=== PATIENT | female | born 1980 | race Hispanic/Latino ===

== ENCOUNTER 2017-12-25 11:03 | Emergency (ER) | payer OTHER, MEDICAID ==
[2017-12-25 11:49] VITALS: BP 163/98
[2017-12-25] MEDS ORDERED: TORADOL IM ONE (13:12)
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
[2017-12-25] MEDS ORDERED: FLEXERIL PO ONE (13:26)
--- NOTE | 2017-12-25 14:25 | XRay Report ---
ROUTINE CHEST, TWO VIEWS: HISTORY: chest pain. The trachea, heart, mediastinal contour, lung bauer and bony thorax are unremarkable. IMPRESSION: Unremarkable chest x-ray.
--- NOTE | 2017-12-25 14:25 | XRay Report ---
LUMBOSACRAL SPINE, 3 VIEWS: History: Back pain Findings: The vertebral bodies, disk spaces and posterior elements are intact. No compression deformity or malalignment. The SI joints are symmetric and unremarkable. Impression: 1. No evidence for acute injury to the lumbar spine.
== END 2017-12-25 14:40 | disposition home or self-care (01) ==
LOC: ED 11:03
DX: S13.4XXA Sprain of ligaments of cervical spine, initial encounter (principal); S39.012A Strain of muscle, fascia and tendon of lower back, initial encounter; I10 Essential (primary) hypertension; V89.2XXA Person injured in unspecified motor-vehicle accident, traffic, initial encounter; Y93.89 Activity, other specified; Y92.89 Other specified places as the place of occurrence of the external cause; Y99.8 Other external cause status
CPT/HCPCS: 71046; 72100; 93005; 93010; 96372; 99283; J1885

== ENCOUNTER 2018-02-28 17:43 | Emergency (ER) | payer MEDICAID, OTHER ==
[2018-02-28] MEDS ORDERED: ZOFRAN ODT PO ONE (20:46)
[2018-02-28] MEDS ORDERED: NORCO 5/325 PO ONE (20:46)
--- NOTE | 2018-02-28 20:46 | Emergency Department Report ---
ED Headache HPI - General Chief Complaint: Headache Stated Complaint: SEVERE MIGRAINES X3DAYS Time Seen by Provider: 02/28/18 20:45 - History of Present Illness Initial Comments: 38-year-old female past medical history insomnia, HTN not currently of meds since with complaint of 3 days of persistent headache gradual onset but actually bothersome to the patient today. Patient denies photophobia or phonophobia denies any recent head or neck injury. Patient states she has been seeing a chiropractor recently for chronic back pain. Denies fever chills dysuria or hematuria or increased urinary frequency. Patient is awake alert and oriented 3 fully lucid. Denies alcohol or drug use. Patient states she was given Fioricet prescription by her chiropractor which did not help with her headache which is why she is here today. Also states that her blood pressure was elevated earlier today. Has not been on hypertension medicine in several months. As per patient was discontinued because her blood pressure improved. Denies any current chest pain palpitations shortness of breath or vision paresthesias. Timing/Duration: 24 hours, increasing Quality: moderate Head Injury Location: frontal, temporal Recent Head Trauma: occasional headaches Associated Symptoms: denies symptoms Allergies/Adverse Reactions: Allergies No Known Allergies Allergy (Verified 02/28/18 17:48) Home Medications: Ambulatory Orders Lactobacillus Combination No.8 [Adult Probiotic] 1 each PO QDAY 01/13/16 Tizanidine HCl [Zanaflex] 4 mg PO TID PRN 01/13/16 traZODone [Desyrel] 50 mg PO QHS 01/13/16 HYDROcodone/APAP 5-325 [[place] 5-325 mg TAB] 1 each PO Q6HR PRN #10 tablet HYDROcodone/APAP 7.5-325 [[place] 7.5-325 mg TAB] 1 each PO Q8HR PRN #12 tablet Cyclobenzaprine [Flexeril] 10 mg PO TID PRN #7 tablet 12/25/17 Ibuprofen [Motrin] 600 mg PO Q8H PRN #30 tablet 12/25/17 Acetaminophen [Acetaminophen TAB] 500 mg PO Q6HR PRN #20 tablet 02/28/18 Lisinopril [Zestril TAB] 5 mg PO QDAY #30 tablet 02/28/18 ED Review of Systems ROS: Stated complaint: SEVERE MIGRAINES X3DAYS Other details as noted in HPI Constitutional: denies: chills, fever Eyes: denies: eye pain, eye discharge, vision change ENT: denies: ear pain, throat pain Respiratory: denies: cough, shortness of breath, wheezing Cardiovascular: denies: chest pain, palpitations Endocrine: no symptoms reported Gastrointestinal: denies: abdominal pain, nausea, diarrhea Genitourinary: denies: urgency, dysuria, discharge Musculoskeletal: denies: back pain, joint swelling, arthralgia Skin: denies: rash, lesions Neurological: headache, other (insomnia). denies: weakness, paresthesias Psychiatric: denies: anxiety, depression Hematological/Lymphatic: denies: easy bleeding, easy bruising ED Past Medical Hx - Past Medical History Hx Hypertension: Yes (FOR 1 YR, OFF MEDS X [address] TORRES- PCP) - Surgical History Additional Surgical History: tubal ligation. . mass removed from pelvis area - Social History Smoking Status: Never Smoker Substance Use Type: None - Medications Home Medications: Home Medications Medication Instructions Recorded Confirmed Last Taken Type Lactobacillus Combination No.8 1 each PO QDAY 01/13/16 01/15/16 01/12/16 History [Adult Probiotic] Tizanidine HCl [Zanaflex] 4 mg PO TID PRN 01/13/16 01/15/16 01/15/16 10:30 History traZODone [Desyrel] 50 mg PO QHS 01/13/16 01/15/16 01/13/16 History HYDROcodone/APAP 5-325 [[place] 1 each PO Q6HR PRN #10 tablet 01/15/16 Unknown Rx 5-325 mg TAB] HYDROcodone/APAP 7.5-325 [[place] 1 each PO Q8HR PRN #12 tablet 07/26/16 Unknown Rx 7.5-325 mg TAB] Cyclobenzaprine [Flexeril] 10 mg PO TID PRN #7 tablet 12/25/17 Unknown Rx Ibuprofen [Motrin] 600 mg PO Q8H PRN #30 tablet 12/25/17 Unknown Rx Acetaminophen [Acetaminophen TAB] 500 mg PO Q6HR PRN #20 tablet 02/28/18 Unknown Rx Lisinopril [Zestril TAB] 5 mg PO QDAY #30 tablet 02/28/18 Unknown Rx ED Physical Exam - General Limitations: No Limitations General appearance: alert, in no apparent distress - Head Head exam: Present: atraumatic, normocephalic - Eye Eye exam: Present: normal appearance, PERRL, EOMI - ENT ENT exam: Present: mucous membranes moist - Neck Neck exam: Present: normal inspection, full ROM - Respiratory Respiratory exam: Present: normal lung sounds bilaterally. Absent: respiratory distress - Cardiovascular Cardiovascular Exam: Present: regular rate, normal rhythm. Absent: systolic murmur, diastolic murmur, rubs, gallop - GI/Abdominal GI/Abdominal exam: Present: soft, normal bowel sounds - Extremities Exam Extremities exam: Present: normal inspection - Back Exam Back exam: Present: normal inspection - Neurological Exam Neurological exam: Present: alert, oriented X3, CN II-XII intact, normal gait - Expanded Neurological Exam Expanded Patient oriented to: Present: person, place, time Cranial nerves: EOM's Intact: Normal, Nystagmus: Normal, Facial Sensation: Normal Cerebellar function: Finger to Nose: Normal (no ataxia, Rapid alternating movements and romberg test normal), Heel to [place]: Normal, Romberg: Normal Sensory exam: Upper Extremity Light Touch: Normal, Lower Extremity Light Touch: Normal Motor strength exam: RUE: 5, LUE: 5, RLE: 5, LLE: 5 DTR: tricep (R): 3+, tricep (L): 3+, knee (R): 3+, knee (L): 3+ Best Eye Response (Halle): (4) open spontaneously Best Motor Response ([place]): (6) obeys commands Best Verbal Response ([place]alle): (5) oriented [place] Total: 15 - Psychiatric Psychiatric exam: Present: normal affect, normal mood - Skin Skin exam: Present: warm, dry, intact, normal color. Absent: rash ED Course Vital Signs 02/28/18 02/28/18 02/28/18 17:48 22:14 22:18 Temperature 98.2 F Pulse Rate 96 H Respiratory 18 18 18 Rate Blood Pressure 154/99 O2 Sat by Pulse 99 Oximetry ED Medical Decision Making - Medical Decision Making A/P: Headache 1- CT unremarkable, no ICH, no ischemic changes, no volume changes or mass effect 2- patient's vital signs stable. Patient is slightly hypertensive. Patient states she has follow-up with her PMD within the next week however does not currently have prescription for lisinopril. Patient was previously on lisinopril for hypertension. 3- patient already has prescription for Fioricet. 4- patient states she intermittently takes Ambien as well as Seroquel consistently for insomnia. As there is no other overt or obvious cause of headache I investigated and headache is in more common side effect profile for Seroquel. I advised patient to discuss her Seroquel dosing with her outpatient psychiatrist. Patient has no clinical neurological deficits on current exam. CN III through XII intact on exam. Strength 5 out of 5 bilateral upper and lower extremities with no facial palsy or slurred speech. 5- follow up with outpatient neurology Critical care attestation.: If time is entered above; I have spent that time in minutes in the direct care of this critically ill patient, excluding procedure time. ED Disposition Clinical Impression: Headache Qualifiers: Headache type: tension-type Headache chronicity pattern: acute headache Intractability: not intractable Qualified Code(s): G44.209 - Tension-type headache, unspecified, not intractable Hypertension Qualifiers: Hypertension type: unspecified Qualified Code(s): I10 - Essential (primary) hypertension Disposition: DC- TO HOME OR SELFCARE Is pt being admited?: No Does the pt Need Aspirin: No Condition: Stable Instructions: Hypertension (ED), Tension Headache (ED), Acute Headache (ED) Prescriptions: Acetaminophen [Acetaminophen TAB] 500 mg PO Q6HR PRN #20 tablet PRN Reason: Headache Lisinopril [Zestril TAB] 5 mg PO QDAY #30 tablet Referrals: PRIMARY MD JOSE [Primary Care Provider] - 3-5 Days JAVIER WADE MD [Staff Physician] - 3-5 Days YANELI GOVEA MD [Staff Physician] - 3-5 Days Forms: Accompanied Note Time of Disposition: 23:04
[2018-02-28] MEDS ORDERED: REGLAN PO ONE (21:40)
[2018-02-28] MEDS ORDERED: TYLENOL PO ONE (21:40)
[2018-02-28] MEDS ORDERED: TORADOL IM ONE (21:40)
--- NOTE | 2018-02-28 21:59 | Cat Scan Report ---
FINAL REPORT EXAM: CT HEAD/BRAIN WO CON HISTORY: right sided VEE worsening 1 day TECHNIQUE: Noncontrast CT axial images of the brain. PRIORS: None. FINDINGS: No parenchymal mass, mass effect, hemorrhage, midline shift or hydrocephalus. No evidence of acute cortical infarct. No abnormal, extra-axial fluid or air collection. Osseous calvarium grossly intact. IMPRESSION: 1. No acute intracranial findings.
[2018-02-28] MEDS ORDERED: ZESTRIL PO ONE (22:59)
[2018-02-28 23:21] VITALS: BP 156/104
== END 2018-02-28 23:21 | disposition home or self-care (01) ==
LOC: ED 17:43
DX: R51 Headache (principal); I10 Essential (primary) hypertension; Z98.51 Tubal ligation status
CPT/HCPCS: 70450; 96372; 99283; J1885

== ENCOUNTER 2018-03-11 14:23 | Emergency (ER) | payer MEDICAID ==
[2018-03-11 14:41] VITALS: BP 139/94
--- NOTE | 2018-03-11 15:07 | Emergency Department Report ---
Chief Complaint: Headache Stated Complaint: HYPERTENSIVE Time Seen by Provider: 03/11/18 14:54 - HPI History of Present Illness: 38-year-old female presents to the emergency department, driving himself in to be seen, with a complaint of elevated blood pressure, headache and yesterday she also had an episode where she was short of breath. The headache is been going on for the past 2-3 weeks and it is mostly frontal, left- sided but sometimes will move to the right side. She calls it a migraine but has never been diagnosed with migraine headaches. She was here for similar symptoms on 02/28/[address] scan of the head that was negative for any acute process. The patient says that her blood pressure has been elevated oftentimes going to about 150/116. She went to a [facility] house today to have a blood pressure checked and was told to go to the emergency department. No focal , motor or sensory deficits. She is currently taking doxycycline for a tick bite and is on 5 mg Norvasc for her blood pressure. She recently saw a new primary care physician, Dr. Jr العلي, for the first time. - ROS Review of Systems: Positive for headache, shortness of breath Negative for chest pain, fever, vision change, slurred speech - Exam Vital Signs: Vital Signs 03/11/18 03/11/18 14:36 14:51 Temperature 98.8 F Pulse Rate 97 H Respiratory 18 17 Rate Blood Pressure 139/94 O2 Sat by Pulse 100 Oximetry Physical Exam: Patient appears slightly anxious. Heart and lung sounds are normal to auscultation. MSE screening note: Focused history and physical exam performed. Due to findings the following was ordered: I have ordered a CBC, BMP and TSH for labs. She will have a 2 view chest x-ray. ED Disposition for MSE Condition: Stable
[2018-03-11 15:25] LABS: Basophils % (Auto) 0.4 % (0.0-1.8); Eosinophils % (Auto) 0.2 % (0.0-4.3); Hematocrit 38.1 % (30.3-42.9); Hemoglobin 12.8 gm/dl (10.1-14.3); Lymphocytes # (Auto) 1.2 K/mm3 (1.2-5.4); Lymphocytes % (Auto) 20.7 % (13.4-35.0); Mean Corpuscular HGB Conc 34 % (30-34); Mean Corpuscular Hemoglobin 29 pg (28-32); Mean Corpuscular Volume 87 fl (79-97); Monocytes # (Auto) 0.4 K/mm3 (0.0-0.8); Monocytes % (Auto) 6.2 % (0.0-7.3); Platelet Count 239 K/mm3 (140-440); Red Blood Count 4.39 M/mm3 (3.65-5.03); Red Cell Distribution Width 13.8 % (13.2-15.2)
[2018-03-11 15:43] LABS: BUN/Creatinine Ratio 17; Blood Urea Nitrogen 10 mg/dL (7-17); Calcium 8.8 mg/dL (8.4-10.2); Hemolysis Index 11
[2018-03-11] MEDS ORDERED: TYLENOL PO ONE (15:43)
--- NOTE | 2018-03-11 16:59 | Emergency Department Report ---
ED Headache HPI - General Chief Complaint: Headache Stated Complaint: HYPERTENSIVE Time Seen by Provider: 03/11/18 14:54 - History of Present Illness Initial Comments: 38-year-old female past medical history hypertension, headaches, insomnia presents with complaint of increased blood pressure and associated headache. Patient states this is been ongoing for several weeks. Denies any current fever chills nausea vomiting photophobia. States she has been stressed more than usual a family member being critically ill lately. Patient states she has been taking amlodipine 5 mg daily but her blood pressure has remained persistently elevated. States that her blood pressure was over 120 diastolic this morning which is one of the reasons she came to the emergency department. Denies any current chest pain palpitations shortness of breath nausea or vomiting. Patient is awake alert and oriented 3. States headache is only moderate at this time has been worse in the past. Denies any blurry vision upper or lower extremity paresthesias Quality: mild Head Injury Location: frontal Associated Symptoms: denies symptoms Allergies/Adverse Reactions: Allergies No Known Allergies Allergy (Verified 03/11/18 14:36) Home Medications: Ambulatory Orders Lactobacillus Combination No.8 [Adult Probiotic] 1 each PO QDAY 01/13/16 Tizanidine HCl [Zanaflex] 4 mg PO TID PRN 01/13/16 traZODone [Desyrel] 50 mg PO QHS 01/13/16 HYDROcodone/APAP 5-325 [[place] 5-325 mg TAB] 1 each PO Q6HR PRN #10 tablet HYDROcodone/APAP 7.5-325 [[place] 7.5-325 mg TAB] 1 each PO Q8HR PRN #12 tablet Cyclobenzaprine [Flexeril] 10 mg PO TID PRN #7 tablet 12/25/17 Ibuprofen [Motrin] 600 mg PO Q8H PRN #30 tablet 12/25/17 Acetaminophen [Acetaminophen TAB] 500 mg PO Q6HR PRN #20 tablet 02/28/18 Lisinopril [Zestril TAB] 5 mg PO QDAY #30 tablet 02/28/18 Amlodipine Besylate [Norvasc] 2.5 mg PO QDAY #30 tablet 03/11/18 ED Review of Systems ROS: Stated complaint: HYPERTENSIVE Other details as noted in HPI Constitutional: denies: chills, fever Eyes: denies: eye pain, eye discharge, vision change ENT: denies: ear pain, throat pain Respiratory: denies: cough, shortness of breath, wheezing Cardiovascular: denies: chest pain, palpitations Endocrine: no symptoms reported Gastrointestinal: denies: abdominal pain, nausea, diarrhea Genitourinary: denies: urgency, dysuria, discharge Musculoskeletal: denies: back pain, joint swelling, arthralgia Skin: denies: rash, lesions Neurological: headache. denies: weakness, paresthesias Psychiatric: denies: anxiety, depression Hematological/Lymphatic: denies: easy bleeding, easy bruising ED Past Medical Hx - Past Medical History Hx Hypertension: Yes (FOR 1 YR, OFF MEDS X [address] TORRES- PCP) - Surgical History Additional Surgical History: tubal ligation. . mass removed from pelvis area - Social History Smoking Status: Never Smoker Substance Use Type: None - Medications Home Medications: Home Medications Medication Instructions Recorded Confirmed Last Taken Type Lactobacillus Combination No.8 1 each PO QDAY 01/13/16 01/15/16 01/12/16 History [Adult Probiotic] Tizanidine HCl [Zanaflex] 4 mg PO TID PRN 01/13/16 01/15/16 01/15/16 10:30 History traZODone [Desyrel] 50 mg PO QHS 01/13/16 01/15/16 01/13/16 History HYDROcodone/APAP 5-325 [[place] 1 each PO Q6HR PRN #10 tablet 01/15/16 Unknown Rx 5-325 mg TAB] HYDROcodone/APAP 7.5-325 [[place] 1 each PO Q8HR PRN #12 tablet 07/26/16 Unknown Rx 7.5-325 mg TAB] Cyclobenzaprine [Flexeril] 10 mg PO TID PRN #7 tablet 12/25/17 Unknown Rx Ibuprofen [Motrin] 600 mg PO Q8H PRN #30 tablet 12/25/17 Unknown Rx Acetaminophen [Acetaminophen TAB] 500 mg PO Q6HR PRN #20 tablet 02/28/18 Unknown Rx Lisinopril [Zestril TAB] 5 mg PO QDAY #30 tablet 02/28/18 Unknown Rx Amlodipine Besylate [Norvasc] 2.5 mg PO QDAY #30 tablet 03/11/18 Unknown Rx ED Physical Exam - General Limitations: No Limitations General appearance: alert, in no apparent distress - Head Head exam: Present: atraumatic, normocephalic - Eye Eye exam: Present: normal appearance, PERRL, EOMI - ENT ENT exam: Present: mucous membranes moist - Neck Neck exam: Present: normal inspection, full ROM - Respiratory Respiratory exam: Present: normal lung sounds bilaterally. Absent: respiratory distress - Cardiovascular Cardiovascular Exam: Present: regular rate, normal rhythm. Absent: systolic murmur, diastolic murmur, rubs, gallop - GI/Abdominal GI/Abdominal exam: Present: soft, normal bowel sounds - Extremities Exam Extremities exam: Present: normal inspection - Back Exam Back exam: Present: normal inspection - Neurological Exam Neurological exam: Present: alert, oriented X3, CN II-XII intact, normal gait - Expanded Neurological Exam Expanded Patient oriented to: Present: person, place, time Cranial nerves: EOM's Intact: Normal, Facial Sensation: Normal Cerebellar function: Finger to Nose: Normal, Heel to [place]: Normal, [place]: Normal Sensory exam: Upper Extremity Light Touch: Normal, Lower Extremity Light Touch: Normal Motor strength exam: RUE: 5, LUE: 5, RLE: 5, LLE: 5 DTR: tricep (R): 3+, tricep (L): 3+, knee (R): 3+, knee (L): 3+ Best Eye Response ([place]): (4) open spontaneously Best Motor Response ([place]): (6) obeys commands Best Verbal Response ([place]): (5) oriented [place] Total: 15 - Psychiatric Psychiatric exam: Present: normal affect, normal mood - Skin Skin exam: Present: warm, dry, intact, normal color. Absent: rash ED Course Vital Signs 03/11/18 03/11/18 14:36 14:51 Temperature 98.8 F Pulse Rate 97 H Respiratory 18 17 Rate Blood Pressure 139/94 O2 Sat by Pulse 100 Oximetry ED Medical Decision Making - Lab Data Result diagrams: 03/11/18 15:12 03/11/18 15:12 - Medical Decision Making A/P: Hypertension, headache 1-labs and chest x-ray unremarkable today 2-pt recently had CT scan of head which was unremarkable 3-no neurological deficits at this time. Cranial nerves 2, 3, 4, 5, 6, 7, 8,10 , 11, 12 intact on clinical exam, patient is fully lucid awake alert and oriented 3 conversant. Denies any upper or lower extremity paresthesias and has 5/5 strength in bilateral upper and lower extremities on clinical exam. 4-patient states she is going to follow up with her primary care physician tomorrow. Advised her to decrease smoking salty food intake. 5-vital signs are acceptable for discharge Critical care attestation.: If time is entered above; I have spent that time in minutes in the direct care of this critically ill patient, excluding procedure time. ED Disposition Clinical Impression: Hypertension Qualifiers: Hypertension type: unspecified Qualified Code(s): I10 - Essential (primary) hypertension Headache Qualifiers: Headache type: unspecified Headache chronicity pattern: episodic headache Intractability: not intractable Qualified Code(s): R51 - Headache Disposition: DC-01 TO HOME OR SELFCARE Is pt being admited?: No Does the pt Need Aspirin: No Condition: Stable Instructions: Hypertension (ED), Acute Headache (ED) Prescriptions: Amlodipine Besylate [Norvasc] 2.5 mg PO QDAY #30 tablet Referrals: [facility] [Outside] - 3-5 Days [facility] [Outside] - 3-5 Days HOMAR MIRAMONTES MD [Staff Physician] - 3-5 Days Forms: Work/School Release Form(ED) Time of Disposition: 16:59
[2018-03-11] MEDS ORDERED: TYLENOL #3 PO ONE (17:11)
--- NOTE | 2018-03-12 14:30 | XRay Report ---
FINAL REPORT EXAM: XR CHEST ROUTINE 2V HISTORY: SOB TECHNIQUE: Two view chest PA and lateral PRIORS: None. FINDINGS: Cardiac and mediastinal contours are unremarkable. No focal pulmonary infiltrate is identified. No pleural fluid collection seen. Pulmonary vasculature is unremarkable. IMPRESSION: Negative two-view chest
== END 2018-03-11 17:21 | disposition home or self-care (01) ==
LOC: ED 14:23
DX: I10 Essential (primary) hypertension (principal); R51 Headache; Z98.51 Tubal ligation status
CPT/HCPCS: 36415; 71046; 80048; 84443; 84703; 85025

== ENCOUNTER 2020-12-01 15:04 | Emergency (ER) | payer MEDICAID ==
--- NOTE | 2020-12-01 15:52 | Event Note ---
ED Screening Note Date of service: 12/01/20 Time: 15:47 ED Screening Note: 40-year-old female presents to the ER today complaining of right lower quadrant abdominal pain. She states that it started couple weeks ago then got better then worsened again this past week. She reports associated nausea and intermittent vomiting, urinary frequency and urinary odor. She states that she is 13 days late for her menstrual cycle. She did take a home test but it was inconclusive. Her last menstrual cycle was October 21, 2020. Past medical history include thyroid disease, C. difficile This initial assessment/diagnostic orders/clinical plan/treatment(s) is/are subject to change based on patients health status, clinical progression and re- assessment by fellow clinical providers in the ED. Further treatment and workup at subsequent clinical providers discretion. Patient/guardian urged not to elope from the ED as their condition may be serious if not clinically assessed and managed. Initial orders include: CBC, urinalysis, CMP, hCG, lipase
[2020-12-01 16:29] LABS: Basophils # (Auto) 0.1 K/mm3 (0.0-0.1); Basophils % (Auto) 1.2 % (0.0-1.8); Eosinophils % (Auto) 0.8 % (0.0-4.3); Hemoglobin 13.9 gm/dl (10.1-14.3); Lymphocytes # (Auto) 1.7 K/mm3 (1.2-5.4); Lymphocytes % (Auto) 30.7 % (13.4-35.0); Mean Corpuscular HGB Conc 34 % (30-34); Mean Corpuscular Volume 87 fl (79-97); Monocytes # (Auto) 0.3 K/mm3 (0.0-0.8); Monocytes % (Auto) 5.6 % (0.0-7.3); Platelet Count 208 K/mm3 (140-440); Red Blood Count 4.71 M/mm3 (3.65-5.03); Red Cell Distribution Width 13.7 % (13.2-15.2)
[2020-12-01 16:45] LABS: Alanine Aminotransferase 13 units/L (7-56); Albumin 4.3 g/dL (3.9-5); Blood Urea Nitrogen 11 mg/dL (7-17); Calcium 9.1 mg/dL (8.4-10.2); Hemolysis Index 3
[2020-12-01 16:54] LABS: BUN/Creatinine Ratio 16
[2020-12-01 16:57] LABS: Bilirubin,Urine NEG (Negative); Blood,Urine NEG (Negative); Color,Urine Yellow (Yellow); Hyaline Casts,Urine 1 /LPF; Mucus,Urine FEW /HPF; Urobilinogen,Urine < 2.0 mg/dL (<2.0)
[2020-12-01] MEDS ORDERED: ONDANSETRON 4 MG/2 ML INJ IV ONE (16:59)
[2020-12-01] MEDS ORDERED: HYDROmorphone 1 MG/1 ML INJ IV ONE (16:59)
[2020-12-01] MEDS ORDERED: SODIUM CHLORIDE 0.9% 1000 ML 1,000 ML IV ONE (16:59)
--- NOTE | 2020-12-01 17:00 | Emergency Department Report ---
ED General Adult HPI - General Chief complaint: Abdominal Pain Stated complaint: ABDOMINAL PAIN (POSS PREG) PUI?: No Time Seen by Provider: 12/01/20 15:41 Source: patient, RN notes reviewed, old records reviewed Mode of arrival: Ambulatory Limitations: No Limitations - History of Present Illness Initial comments: The patient was evaluated in the emergency department for symptoms described in the history of present illness. He/she was evaluated in the context of the global COVID-19 pandemic, which necessitated consideration that the patient might be at risk for infection with the virus that causes COVID-19. Institutional protocols and algorithms that pertain to the evaluation of patients at risk for COVID-19 are in a state of rapid change based on information released by regulatory bodies including the CDC and federal and state organizations. These policies and algorithms were followed during the patient's care in the emergency department. Please note that these policies, procedures and recommendations changed on a rapid basis. During the history and physical examination, I am chaperoned by nurse Giovanna Meza This is a 40-year-old female. The patient presents to the ER with a complaint of suprapubic and right lower quadrant pain for the past week. The pain is typically worse at night, but constant. There is positive nausea but no vomiting. The pain is "all over" her lower abdominal region. Has extensive abdominal surgical history, including tubal ligation, , and "cyst/seroma" which need to be surgically excised from her anterior abdominal wall. The patient denies headache, neck pain, chest pain, new/different cough, loss of taste and smell, indicates that her urine "smells funny", but denies dysuria, and also endorses chronic vaginal discharge. No extremity complaints. She is not sure if she is . She states that she is not trying to conceive at this time -: Gradual, days(s) Location: abdomen, pelvis Radiation: non-radiation Quality: aching Consistency: constant Improves with: rest Worsens with: movement - Related Data Home Medications Medication Instructions Recorded Confirmed Last Taken Lactobacillus Combination No.8 1 each PO QDAY 01/13/16 01/15/16 01/12/16 [Adult Probiotic] traZODone [Desyrel] 50 mg PO QHS 01/13/16 01/15/16 01/13/16 Previous Rx's Medication Instructions Recorded Last Taken Type Ibuprofen [Motrin] 600 mg PO Q8H PRN #30 tablet 12/25/17 Unknown Rx Acetaminophen [Acetaminophen TAB] 500 mg PO Q6HR PRN #20 tablet 02/28/18 Unknown Rx lisinopriL [Zestril TAB] 5 mg PO QDAY #30 tablet 02/28/18 Unknown Rx Amlodipine Besylate [Norvasc] 2.5 mg PO QDAY #30 tablet 03/11/18 Unknown Rx Acetaminophen [Non-Aspirin Extra 500 mg PO Q6HR PRN #30 tablet 12/01/20 Unknown Rx Strength] Ibuprofen [Motrin] 600 mg PO Q8H PRN #30 tablet 12/01/20 Unknown Rx Ondansetron [Zofran Odt] 4 mg PO Q8HR PRN #20 tab.rapdis 12/01/20 Unknown Rx metroNIDAZOLE [metroNIDAZOLE 1 applicatio VG QHS 5 Days #1 12/01/20 Unknown Rx VAGINAL 0.75% gel] gel.w.appl Allergies Allergy/AdvReac Type Severity Reaction Status Date / Time No Known Allergies Allergy Verified 12/01/20 15:38 ED Review of Systems ROS: Stated complaint: ABDOMINAL PAIN (POSS PREG) Other details as noted in HPI Constitutional: denies: fever, malaise, weakness Eyes: denies: vision change ENT: denies: epistaxis Respiratory: denies: cough Cardiovascular: denies: chest pain Gastrointestinal: abdominal pain, nausea Genitourinary: as per HPI, discharge. denies: dysuria Musculoskeletal: denies: back pain Neurological: weakness Psychiatric: anxiety Hematological/Lymphatic: denies: easy bleeding ED Past Medical Hx - Past Medical History Previous Medical History?: Yes Hx Hypertension: Yes (FOR 1 YR, OFF MEDS X [address] TORRES- PCP) Hx Liver Disease: Yes (tested positive for HEP C but says is "inactive") Additional medical history: CDiff 2016 - Surgical History Past Surgical History?: Yes Additional Surgical History: tubal ligation. . mass removed from pelvis area - Social History Smoking Status: Never Smoker - Medications Home Medications: Home Medications Medication Instructions Recorded Confirmed Last Taken Type Lactobacillus Combination No.8 1 each PO QDAY 01/13/16 01/15/16 01/12/16 History [Adult Probiotic] traZODone [Desyrel] 50 mg PO QHS 04/03/2401/15/16 01/13/16 History Ibuprofen [Motrin] 600 mg PO Q8H PRN #30 tablet 12/25/17 Unknown Rx Acetaminophen [Acetaminophen TAB] 500 mg PO Q6HR PRN #20 tablet 02/28/18 Unknown Rx lisinopriL [Zestril TAB] 5 mg PO QDAY #30 tablet 02/28/18 Unknown Rx Amlodipine Besylate [Norvasc] 2.5 mg PO QDAY #30 tablet 03/11/18 Unknown Rx Acetaminophen [Non-Aspirin Extra 500 mg PO Q6HR PRN #30 tablet 12/01/20 Unknown Rx Strength] Ibuprofen [Motrin] 600 mg PO Q8H PRN #30 tablet 12/01/20 Unknown Rx Ondansetron [Zofran Odt] 4 mg PO Q8HR PRN #20 tab.rapdis 12/01/20 Unknown Rx metroNIDAZOLE [metroNIDAZOLE 1 applicatio VG QHS 5 Days #1 12/01/20 Unknown Rx VAGINAL 0.75% gel] gel.w.appl ED Physical Exam - General Limitations: No Limitations General appearance: alert, anxious, obese - Head Head exam: Present: atraumatic, normocephalic - Eye Eye exam: Present: normal appearance, EOMI. Absent: nystagmus - ENT ENT exam: Present: normal exam, normal orophraynx, mucous membranes moist, normal external ear exam - Neck Neck exam: Present: normal inspection, full ROM. Absent: tenderness, meningismus - Respiratory Respiratory exam: Present: normal lung sounds bilaterally. Absent: respiratory distress, wheezes, rales, rhonchi, stridor, decreased breath sounds - Cardiovascular Cardiovascular Exam: Present: regular rate, normal rhythm, normal heart sounds. Absent: bradycardia, tachycardia, irregular rhythm, systolic murmur, diastolic murmur, rubs, gallop - GI/Abdominal GI/Abdominal exam: Present: soft, tenderness, normal bowel sounds, other (Suprapubic and right lower quadrant tender). Absent: distended, guarding, rebound, rigid, pulsatile mass - External exam: Present: normal external exam. Absent: erythema, swelling, lesions, lacerations, ecchymosis Speculum exam: Present: normal speculum exam, vaginal discharge (Scant whitish discharge noted in the vaginal vault). Absent: erythema, cervical discharge, vaginal bleeding, tissue, laceration Bi-manual exam: Present: normal bi-manual exam, other (Chaperoned by Venice Zuniga). Absent: cervical motion tendernes, adnexal tenderness, adnexal mass, uterine enlargement, uterine tenderness - Extremities Exam Extremities exam: Present: normal inspection, full ROM, other (2+ pulses noted in the bilateral upper and lower extremities. There is no palpable cord. negative Homans sign. Muscular compartments are soft. The pelvis is stable.). Absent: pedal edema, calf tenderness - Back Exam Back exam: Present: normal inspection, full ROM. Absent: tenderness, CVA tenderness (R), CVA tenderness (L), paraspinal tenderness, vertebral tenderness - Neurological Exam Neurological exam: Present: alert, normal gait, other (No facial droop. Tongue midline. Extraocular movements intact bilaterally. Facial sensation intact to light touch in V1, V2, V3 distribution bilaterally. 5 and a 5 strength in 4 extremities. Sensation intact to light touch in 4 extremities.). Absent: motor sensory deficit - Psychiatric Psychiatric exam: Present: anxious - Skin Skin exam: Present: warm, dry, intact, normal color. Absent: rash ED Course Vital Signs 12/01/20 12/01/20 12/01/20 15:38 19:00 19:20 Temperature 98.0 F Pulse Rate 90 80 Respiratory 18 15 16 Rate Blood Pressure 151/98 129/86 O2 Sat by Pulse 100 98 Oximetry - Reevaluation(s) Reevaluation #1: 12/01/20 17:32 Differential diagnosis, include but not limited to: Appendicitis, renal colic, constipation, ovarian cyst, ovarian torsion, hydrosalpinx, pelvic inflammatory disease, inflammatory bowel disease, functional abdominal pain Endometriosis Assessment and plan: 40-year-old female with acute on chronic suprapubic and right lower quadrant pain. She is afebrile with reassuring vital signs, but fairly tender. She is not , and urinalysis and history not suggestive of urinary tract infection. Perform pelvic examination, treat symptoms aggressively, and symptomatically, obtain CT scan of the abdomen pelvis, pelvic ultrasound, and reassess. Have discussed this plan of care with the patient, who verbalized understanding, and is amenable to this plan of care. During the entire history and physical examination, chaperoned by nurse Giovanna Meza. 12/01/20 19:54 Gynecologic examination is benign. CT scan of the abdomen pelvis negative for acute findings. Pelvic ultrasound negative for acute findings. There is no left lower quadrant pain or tenderness. Belly soft on repeat examination. Had scant whitish discharge, recently treated for "sinusitis" with uncertain antibiotic, patient thinks she might have a yeast infection. Covered empirically with fluconazole, wet prep shows clue cells. Patient will be treated for BV, as she endorsed smell and discharge. Patient does not appear to have an emergent surgical medical condition at this time, she is resting comfortably, suitable for discharge with outpatient follow- up. ED Medical Decision Making - Lab Data Result diagrams: 12/01/20 16:10 12/01/20 16:10 Vital Signs 12/01/20 15:38 Temperature 98.0 F Pulse Rate 90 Respiratory 18 Rate Blood Pressure 151/98 O2 Sat by Pulse 100 Oximetry Lab Results 12/01/20 12/01/20 12/01/20 Range/Units 16:10 16:10 16:10 WBC 5.4 (4.5-11.0) K/mm3 RBC 4.71 (3.65-5.03) M/mm3 Hgb 13.9 (10.1-14.3) gm/dl Hct 41.0 (30.3-42.9) % MCV 87 (79-97) fl MCH 29 (28-32) pg MCHC 34 (30-34) % RDW 13.7 (13.2-15.2) % Plt Count 208 (140-440) K/mm3 Lymph % (Auto) 30.7 (13.4-35.0) % Norman % (Auto) 5.6 (0.0-7.3) % Eos % (Auto) 0.8 (0.0-4.3) % Baso % (Auto) 1.2 (0.0-1.8) % Lymph # (Auto) 1.7 (1.2-5.4) K/mm3 Norman # (Auto) 0.3 (0.0-0.8) K/mm3 Eos # (Auto) 0.0 (0.0-0.4) K/mm3 Baso # (Auto) 0.1 (0.0-0.1) K/mm3 Seg Neutrophils % 61.7 (40.0-70.0) % Seg Neutrophils # 3.4 (1.8-7.7) K/mm3 Sodium 136 L (137-145) mmol/L Potassium 4.1 (3.6-5.0) mmol/L Chloride 101.3 (98-107) mmol/L Carbon Dioxide 29 (22-30) mmol/L Anion Gap 10 mmol/L BUN 11 (7-17) mg/dL Creatinine 0.7 (0.6-1.2) mg/dL Estimated GFR > 60 ml/min BUN/Creatinine Ratio 16 % Glucose 88 (65-100) mg/dL Calcium 9.1 (8.4-10.2) mg/dL Magnesium (1.7-2.3) mg/dL Total Bilirubin < 0.20 (0.1-1.2) mg/dL AST 14 (5-40) units/L ALT 13 (7-56) units/L Alkaline Phosphatase 77 (35-129) units/L Total Protein 7.4 (6.3-8.2) g/dL Albumin 4.3 (3.9-5) g/dL Albumin/Globulin Ratio 1.4 % Lipase 23 (13-60) units/L HCG, Qual Negative (Negative) Urine Color (Yellow) Urine Turbidity (Clear) Urine pH (5.0-7.0) Ur Specific [place] (1.003-1.030) Urine Protein (Negative) mg/dL Urine Glucose (UA) (Negative) mg/dL Urine Ketones (Negative) mg/dL Urine Blood (Negative) Urine Nitrite (Negative) Urine Bilirubin (Negative) Urine Urobilinogen (<2.0) mg/dL Ur Leukocyte Esterase (Negative) Urine WBC (Auto) (0.0-6.0) /HPF Urine RBC (Auto) (0.0-6.0) /HPF U Epithel Cells (Auto) (0-13.0) /HPF Hyaline Casts /LPF Urine Mucus /HPF 12/01/20 12/01/20 Range/Units 16:10 Unknown WBC (4.5-11.0) K/mm3 RBC (3.65-5.03) M/mm3 Hgb (10.1-14.3) gm/dl Hct (30.3-42.9) % MCV (79-97) fl MCH (28-32) pg MCHC (30-34) % RDW (13.2-15.2) % Plt Count (140-440) K/mm3 Lymph % (Auto) (13.4-35.0) % Norman % (Auto) (0.0-7.3) % Eos % (Auto) (0.0-4.3) % Baso % (Auto) (0.0-1.8) % Lymph # (Auto) (1.2-5.4) K/mm3 Norman # (Auto) (0.0-0.8) K/mm3 Eos # (Auto) (0.0-0.4) K/mm3 Baso # (Auto) (0.0-0.1) K/mm3 Seg Neutrophils % (40.0-70.0) % Seg Neutrophils # (1.8-7.7) K/mm3 Sodium (137-145) mmol/L Potassium (3.6-5.0) mmol/L Chloride (98-107) mmol/L Carbon Dioxide (22-30) mmol/L Anion Gap mmol/L BUN (7-17) mg/dL Creatinine (0.6-1.2) mg/dL Estimated GFR ml/min BUN/Creatinine Ratio % Glucose (65-100) mg/dL Calcium (8.4-10.2) mg/dL Magnesium 2.30 (1.7-2.3) mg/dL Total Bilirubin (0.1-1.2) mg/dL AST (5-40) units/L ALT (7-56) units/L Alkaline Phosphatase (35-129) units/L Total Protein (6.3-8.2) g/dL Albumin (3.9-5) g/dL Albumin/Globulin Ratio % Lipase (13-60) units/L HCG, Qual (Negative) Urine Color Yellow (Yellow) Urine Turbidity Clear (Clear) Urine pH 6.0 (5.0-7.0) Ur Specific [place] 1.028 (1.003-1.030) Urine Protein 30 mg/dl (Negative) mg/dL Urine Glucose (UA) Neg (Negative) mg/dL Urine Ketones Neg (Negative) mg/dL Urine Blood Neg (Negative) Urine Nitrite Neg (Negative) Urine Bilirubin Neg (Negative) Urine Urobilinogen < 2.0 (<2.0) mg/dL Ur Leukocyte Esterase Neg (Negative) Urine WBC (Auto) 1.0 (0.0-6.0) /HPF Urine RBC (Auto) 1.0 (0.0-6.0) /HPF U Epithel Cells (Auto) 2.0 (0-13.0) /HPF Hyaline Casts 1 /LPF Urine Mucus Few /HPF - Radiology Data Radiology results: report reviewed, image reviewed CT ABDOMEN AND PELVIS WITH CONTRAST INDICATION / CLINICAL INFORMATION: rlq pain. TECHNIQUE: Axial CT images were obtained through the abdomen and pelvis after 100 mL Omnipaque [address] scans at this location are performed using CT dose reduction for ALARA by means of automated exposure control. COMPARISON: None available. FINDINGS: LOWER CHEST: No significant abnormality. LIVER: No significant abnormality. GALLBLADDER: No significant abnormality. BILE DUCTS: No significant abnormality. PANCREAS: Mild fatty infiltration of the pancreatic head. No acute abnormality. SPLEEN: No significant abnormality. ADRENALS: No significant abnormality. RIGHT KIDNEY / URETER: No significant abnormality. LEFT KIDNEY / URETER: No significant abnormality. STOMACH / SMALL BOWEL: No significant abnormality. COLON: No significant abnormality. APPENDIX: No significant abnormality. PERITONEUM: No free fluid. No free air. No fluid collection. LYMPH NODES: No significant adenopathy. AORTA / ARTERIES: No significant abnormality. IVC / VEINS: No significant abnormality. URINARY BLADDER: No significant abnormality. REPRODUCTIVE ORGANS: Small bilateral ovarian physiologic cysts. No acute abnormality. ADDITIONAL FINDINGS: None. SKELETAL SYSTEM: No significant abnormality. IMPRESSION: 1. No acute process in the abdomen or pelvis. Normal appendix. Signer Name: Woo Sylvester MD Signed: 12/01/2020 4:52 PM Workstation Name: [id number] US transvaginal, US pelvis duplex doppler comp INDICATION / CLINICAL INFORMATION: rlq pain pelvic pain. COMPARISON: None available. FINDINGS: Uterus appears unremarkable. Endometrial stripe measures 1.4 cm. Both ovaries are negative. No free fluid. Color Doppler imaging shows normal vascular flow in the right ovary. Color Doppler imaging of the left ovary could not be performed. IMPRESSION: 1. Negative study. Signer Name: Catrachito Pereira MD Signed: 12/01/2020 6:07 PM Workstation Name: [id number] US transvaginal, US pelvis duplex doppler comp INDICATION / CLINICAL INFORMATION: rlq pain pelvic pain. COMPARISON: None available. FINDINGS: Uterus appears unremarkable. Endometrial stripe measures 1.4 cm. Both ovaries are negative. No free fluid. Color Doppler imaging shows normal vascular flow in the right ovary. Color Doppler imaging of the left ovary could not be performed. IMPRESSION: 1. Negative study. Signer Name: Catrachito Pereira MD Signed: 12/01/2020 6:07 PM Workstation Name: [id number] Critical care attestation.: If time is entered above; I have spent that time in minutes in the direct care of this critically ill patient, excluding procedure time. ED Disposition Clinical Impression: Right lower quadrant abdominal pain, Bacterial vaginosis Ovarian cyst Qualifiers: Laterality: bilateral Qualified Code(s): N83.201 - Unspecified ovarian cyst, right side Disposition: - TO HOME OR SELFCARE Is pt being admited?: No Does the pt Need Aspirin: No Condition: Stable Instructions: Abdominal Pain (ED), Bacterial Vaginosis (ED), Bacterial Vaginosis, [id number], Ovarian Cyst, [id number], Abdominal Pain, Adult Additional Instructions: Do not take metformin medication for the next 2 days, if patient takes this medication. Do not consume alcohol for the next 10 days. Take the pain medication, nausea medication as needed and directed. Wet prep suggested bacterial vaginosis, which may be why patient is experiencing vaginal odor, discharge and discomfort. Use the MetroGel as prescribed. CT scan abdomen pelvis, pelvic ultrasound did not demonstrate any condition that would require emergent surgical intervention, or antibiotic therapy. Take the pain medication, nausea medication as needed and directed, follow-up with a primary care doctor, hull drafter, either or, within the next 5 to 7 days. Follow-up with a general ophthalmologist within the next month. Cultures were sent today, and results to be available in the next 3 to 5 days. Please have a primary care doctor, general ophthalmologist contact the medical records department to obtain culture results. Please return to the emergency room right away with new pain, worsened pain, migration of pain, projectile vomiting, change in mental status, confusion, inability to tolerate liquid feeds, new, worsened or different symptoms not present on the initial emergency room evaluation. Referrals: [facility] [Provider Group] - 3-5 Days [facility] [Provider Group] - 3-5 Days [facility] [Provider Group] - 3-5 Days
--- NOTE | 2020-12-01 17:57 | Cat Scan Report ---
CT ABDOMEN AND PELVIS WITH CONTRAST INDICATION / CLINICAL INFORMATION: rlq pain. TECHNIQUE: Axial CT images were obtained through the abdomen and pelvis after 100 mL Omnipaque [address] scans at this location are performed using CT dose reduction for ALARA by means of automated exposure control. COMPARISON: None available. FINDINGS: LOWER CHEST: No significant abnormality. LIVER: No significant abnormality. GALLBLADDER: No significant abnormality. BILE DUCTS: No significant abnormality. PANCREAS: Mild fatty infiltration of the pancreatic head. No acute abnormality. SPLEEN: No significant abnormality. ADRENALS: No significant abnormality. RIGHT KIDNEY / URETER: No significant abnormality. LEFT KIDNEY / URETER: No significant abnormality. STOMACH / SMALL BOWEL: No significant abnormality. COLON: No significant abnormality. APPENDIX: No significant abnormality. PERITONEUM: No free fluid. No free air. No fluid collection. LYMPH NODES: No significant adenopathy. AORTA / ARTERIES: No significant abnormality. IVC / VEINS: No significant abnormality. URINARY BLADDER: No significant abnormality. REPRODUCTIVE ORGANS: Small bilateral ovarian physiologic cysts. No acute abnormality. ADDITIONAL FINDINGS: None. SKELETAL SYSTEM: No significant abnormality. IMPRESSION: 1. No acute process in the abdomen or pelvis. Normal appendix. Signer Name: Woo Sylvester MD Signed: 12/01/2020 5:52 PM Workstation Name: [id number]
[2020-12-01] MEDS ORDERED: KETOROLAC 30 MG/1 ML INJ IV ONE (18:30)
--- NOTE | 2020-12-01 19:12 | Ultrasound Report ---
US transvaginal, US pelvis duplex doppler comp INDICATION / CLINICAL INFORMATION: rlq pain pelvic pain. COMPARISON: None available. FINDINGS: Uterus appears unremarkable. Endometrial stripe measures 1.4 cm. Both ovaries are negative. No free f luid. Color Doppler imaging shows normal vascular flow in the right ovary. Color Doppler imaging of the lef t ovary could not be performed. IMPRESSION: 1. Negative study. Signer Name: Catrachito Pereira MD Signed: 12/01/2020 7:07 PM Workstation Name: [id number]
[2020-12-01] MEDS ORDERED: ACETAMINOPHEN 500 MG TAB PO ONE (19:16)
[2020-12-01] MEDS ORDERED: FLUCONAZOLE 100 MG TAB PO ONE (19:16)
[2020-12-01] MEDS ORDERED: FLUCONAZOLE 200 MG TAB PO ONE (20:00)
[2020-12-01 20:28] VITALS: BP 133/84
== END 2020-12-01 20:30 | disposition home or self-care (01) ==
LOC: ED 15:04
DX: N83.201 Unspecified ovarian cyst, right side (principal); N76.0 Acute vaginitis; B96.89 Other specified bacterial agents as the cause of diseases classified elsewhere; I10 Essential (primary) hypertension; Z79.899 Other long term (current) drug therapy
CPT/HCPCS: 36415; 74177; 76830; 80053; 81001; 83690; 83735; 84703; 85025; 87210; 87591; 93975; 96361; 96374; 96375; 99284; J1170; J1885; J2405; J7030; Q9967